=== PATIENT | male | born 1985 | race Caucasian/White ===

== ENCOUNTER → 2017-12-13 09:07 | Outpatient (CLI) | payer OTHER, SELFPAY ==
[2017-12-13 14:43] LABS: Basophils # 0.1 K/mm3 (0-0.2); Eosinophils # 0.3 K/mm3 (0.0-0.4); Eosinophils % 4.1 % (0.1-12.0); Hematocrit 50.6 % (42.0-52.0); Hemoglobin 15.8 g/dL (14.1-18.0); Lymphocytes # 2.5 K/mm3 (0.7-4.5); Lymphocytes % 30.4 K/mm3 (10-50); Mean Corpuscular HGB Conc 31.3 g/dL (31.8-35.4); Mean Corpuscular Hemoglobin 29.9 pg (27.0-31.2); Mean Corpuscular Volume 95.3 fl (80-94); Mean Platelet Volume 10.2 fl (7.4-10.4); Monocytes # 0.6 K/mm3 (0.1-1.0); Monocytes % 7.2 % (1.7-9.3); Neutrophils # 4.8 K/mm3 (1.8-7.8); Neutrophils % 57.2 % (37.0-80.0); Platelet Count 238 K/mm3 (142-424); Red Cell Distribution Width 12.5 % (11.5-17.5); White Blood Count 8.3 K/mm3 (4.8-10.8)
[2017-12-13 15:55] LABS: Alanine Aminotransferase 40 U/L (12-78); Albumin Level 4.2 gm/dL (3.4-5.0); Albumin/Globulin Ratio 1.2 (1.1-1.8); Alkaline Phosphatase 129 U/L (46-116); Anion Gap 15.9 mEq/L (5-15); Aspartate Amino Transferase 18 U/L (15-37); Bilirubin,Total 0.2 mg/dL (0.2-1.0); Blood Urea Nitrogen 15 mg/dL (7-18); Calcium 8.9 mg/dL (8.5-10.1); Carbon Dioxide 29 mmol/L (21.0-32.0); Chloride 102 mmol/L (98-107); Chol/HDL Ratio 3.7 (1-3.5); Cholesterol 192 mg/dL (140-200); Creatinine,Serum 1.04 mg/dL (0.70-1.30); Estimated Glomerular Filt Rate 83 ml/min (>60); Free T4 (Free Thyroxine) 1.13 ng/dl (0.76-1.46); GFR (African American) 101 ML/MIN (>60); Globulin 3.5 gm/dl (1.3-3.2); Glucose 137 mg/dL (74-106); HDL Cholesterol 52 mg/dL (27-67); LDL Cholesterol 124 mg/dL (0-130); Potassium 3.9 mmoL/L (3.5-5.1); Sodium 143 mmol/L (136-145); Thyroid Stimulating Hormone 3.46 uIU/ml (0.358-3.740); Total Protein,Serum 7.7 gm/dL (6.4-8.2); Triglycerides 80 mg/dL (30-200); VLDL Cholesterol 16 mg/dL (0-40)
[2017-12-13 16:56] LABS: Hemoglobin A1C 5.2 % (0.0-7.0)
[2017-12-13 19:37] LABS: Amphetamine/Metha Screen,Urine Negative ng/mL (<1000); Barbiturates Screen,Urine Negative ng/mL (<200); Benzodiazepines Screen,Urine Negative ng/mL (200); Cannabinoid Screen,Urine Positive ng/mL (<50); Cocaine Screen,Urine Negative ng/g (<300); Methadone Screen,Urine Negative ng/mL (<300); Opiate Screen,Urine Negative ng/mL (<300); Phencyclidine Screen,Urine Negative ng/mL (<25)
[2017-12-14 09:24] LABS: Hep A Ab, IgM Negative (Negative); Hepatitis B Core Antibody IgM Negative (Negative); Hepatitis B Surface Antigen Negative (Negative)
[2017-12-14 18:31] LABS: Hepatitis C Antibody >11.0 s/co ratio (0.0-0.9); Vitamin D 25 Hydroxy 33.7 ng/mL (30.0-100.0)
== END ==
PROVIDERS: Visit Provider Nurse Practitioner Family
DX: R53.83 Other fatigue (principal); Z79.899 Other long term (current) drug therapy
CPT/HCPCS: 80053; 80061; 80074; 80305; 82652; 83036; 84439; 84443; 85025

== ENCOUNTER → 2018-01-24 08:29 | Outpatient (CLI) | payer OTHER, SELFPAY ==
[2018-01-24 13:34] LABS: Amphetamine/Metha Screen,Urine Negative ng/mL (<1000); Barbiturates Screen,Urine Negative ng/mL (<200); Benzodiazepines Screen,Urine Negative ng/mL (200); Cannabinoid Screen,Urine Positive ng/mL (<50); Cocaine Screen,Urine Negative ng/g (<300); Methadone Screen,Urine Negative ng/mL (<300); Opiate Screen,Urine Negative ng/mL (<300); Phencyclidine Screen,Urine Negative ng/mL (<25)
== END ==
PROVIDERS: Visit Provider Nurse Practitioner Family
DX: Z79.899 Other long term (current) drug therapy (principal)
CPT/HCPCS: 80305

== ENCOUNTER → 2018-08-12 13:49 | Outpatient (CLI) | payer OTHER, SELFPAY ==
[2018-08-12 15:29] LABS: Amphetamine/Metha Screen,Urine Negative ng/mL (<1000); Barbiturates Screen,Urine Negative ng/mL (<200); Benzodiazepines Screen,Urine Negative ng/mL (<200); Cannabinoid Screen,Urine Positive ng/mL (<50); Cocaine Screen,Urine Negative ng/mL (<300); Methadone Screen,Urine Negative ng/mL (<300); Opiate Screen,Urine Negative ng/mL (<300); Phencyclidine Screen,Urine Negative ng/mL (<25)
== END ==
PROVIDERS: Visit Provider Nurse Practitioner Family
DX: Z79.899 Other long term (current) drug therapy (principal)
CPT/HCPCS: 80305

== ENCOUNTER → 2018-11-28 17:28 | Outpatient (CLI) | payer OTHER, SELFPAY ==
[2018-11-28 19:51] LABS: Amphetamine/Metha Screen,Urine Negative ng/mL (<1000); Barbiturates Screen,Urine Negative ng/mL (<200); Benzodiazepines Screen,Urine Positive ng/mL (<200); Cannabinoid Screen,Urine Positive ng/mL (<50); Cocaine Screen,Urine Negative ng/mL (<300); Methadone Screen,Urine Negative ng/mL (<300); Opiate Screen,Urine Negative ng/mL (<300); Phencyclidine Screen,Urine Negative ng/mL (<25)
[2018-12-04 08:27] LABS: Alprazolam Positive (.); Benzodiazepines Positive ng/mL (Cutoff=100); Clonazepam Positive (.); Flurazepam Negative (Cutoff=100); Lorazepam Negative (Cutoff=100); Midazolam Negative (Cutoff=100); Temazepam Negative (Cutoff=100); Triazolam Negative (Cutoff=100)
[2018-12-06 10:05] LABS: Clonazepam Confirm 283 ng/mL (Cutoff=100)
== END ==
PROVIDERS: Visit Provider Nurse Practitioner Family
DX: Z79.899 Other long term (current) drug therapy (principal)
CPT/HCPCS: 80305; 80346

== ENCOUNTER → 2019-03-17 10:23 | Outpatient (CLI) | payer OTHER, SELFPAY ==
--- NOTE | 2019-03-17 10:26 | CA_ITS ---
PROCEDURE: 2-D M-mode and color Doppler study INDICATIONS FOR THE TEST: Chest pain+ COPD Heart Murmur Tobacco Smoking+ Palpitations Fatigue Syncope Edema Hypertension+Diabetes Mellitus Rheumatic Fever SOB+DOMINGUEZ Obesity Hyperlipidemia Family History HD Additional History FORMER SUBSTANCE ABUSE PATIENT INFORMATION HEIGHT: 71 WEIGHT:245 GENDER: Male B/P:125/69 2-D/M-MODE INTERPRETATION: 2-D MEASUREMENTS OBSERVED VALUES IN CMS Right Ventricular Dimension (RVDd) 2.0 Interventricular Septum (Thickness)(IVsd) 1.1 Left Ventricular Internal Dimensions(LVIDd) 5.1 Left Ventricular Posterior Wall (Thickness)(LVPWd) 0.8 Aortic Root 2.7 Aortic Cusp Separation 1.9 Left Atrial Dimensions (LAD) 3.1 2D 1. Left atrium is normal size, left ventricle is normal size, there is no concentric left ventricular hypertrophy, visually estimated ejection fraction 55% with no regional wall motion abnormality. 2. The right atrium and right ventricle are normal size and contractility. 3. The aortic, mitral and tricuspid valve are grossly normal. 4. The pulmonic valve is poorly visualized. 5. No significant pericardial effusion noted. DOPPLER INTERROGATION: Doppler interrogation of the aortic, mitral and tricuspid valvular presence of mild mitral and tricuspid regurgitation, tricuspid regurgitation jet velocity is inadequate for calculation of the right ventricular systolic pressure, diastolic parameters are within normal range. Inferior vena cava is normal size with normal is likely collapse. CONCLUSION: 1. Normal left ventricular size, preserved left ventricular systolic function, visually estimated ejection fraction 55% with no regional wall motion abnormality, diastolic parameters are within normal range. 2. Mild mitral and tricuspid regurgitation. 3. No significant pericardial effusion noted, inferior vena cava is normal size with normal inspiratory collapse.
== END ==
PROVIDERS: PCP Emergency Medicine; Visit Provider Physician Assistant
DX: R07.9 Chest pain, unspecified (principal); R06.00 Dyspnea, unspecified; I10 Essential (primary) hypertension; F17.200 Nicotine dependence, unspecified, uncomplicated
CPT/HCPCS: 93306

== ENCOUNTER → 2020-06-20 09:39 | Outpatient (CLI) | payer MEDICAID, SELFPAY ==
--- NOTE | 2020-06-20 09:39 | CT_ITS ---
PROCEDURE: CT ABDOMEN PELVIS WO CON CLINICAL INDICATION: Umbilical pain possible hernia umbilical pain, ? umbilical hernia redicat no prior unble to get IV, oral contrast only COMPARISON: No exams were available for comparison TECHNIQUE: Axial images obtained with sagittal and coronal reformats. All CT scans at the facility use one or more dose reduction, viz: automated exposure control, ma/kV adjustment per patient size (including targeted exams where dose is matched to indication, i.e. head), or iterative reconstruction technique. FINDINGS: LOWER THORAX: No acute finding ABDOMEN & PELVIS: The liver, spleen, adrenal glands, pancreas, kidneys and gallbladder have an unremarkable appearance. No renal or ureteral calculi. There are few scattered small mesenteric and retroperitoneal lymph nodes which are nonspecific.. No evidence of appendicitis. There is mild thickening of the descending and sigmoid colon which may be due to nondistention or colitis. There is a small umbilical hernia which contains fat. No pelvic mass or abnormal fluid collection. No acute bony anomalies. IMPRESSION: 1. Possible colitis. 2. Small umbilical hernia containing fat. Dictated by: Ahsan Arellano MD 06/21/2020 14:30 Ahsan Arellano MD in [facility] 06/21/2020 14:30
== END ==
PROVIDERS: PCP Emergency Medicine; Visit Provider Surgery
DX: R10.33 Periumbilical pain (principal)
CPT/HCPCS: 74176

== ENCOUNTER 2020-11-26 23:25 | Emergency (ER) | payer MEDICAID, SELFPAY ==
[2020-11-26 23:28] VITALS: BP 128/87; PULSE 84; RESP 16; TEMP 36.8; O2SAT 98; BMI 36.9
--- NOTE | 2020-11-26 23:54 | XR_ITS ---
PROCEDURE: XR SHOULDER LT MIN 2V CLINICAL INDICATION: pain COMPARISON: No exams were available for comparison FINDINGS: No fracture or dislocation. There is questionable decreased attenuation involving the distal aspect of the clavicle suggesting some bony resorption. The joint spaces are well preserved. Other findings:None. IMPRESSION: No acute fracture. Questionable bony resorption involving the distal aspect of the clavicle which could be response to injury or inflammation. Follow-up may confirm stability. Dictated by: Ahsan Arellano MD 11/27/2020 07:01 Ahsan Arellano MD in [facility] 11/27/2020 07:01
--- NOTE | 2020-11-27 00:42 | HMH.EDGENADL ---
ED Disposition Clinical Impression: Shoulder pain Qualifiers: Chronicity: chronic Laterality: left Qualified Code(s): M25.512 - Pain in left shoulder; G89.29 - Other chronic pain Disposition: Home, Self-Care Condition on Discharge: Good Referrals: Kiko Wolfe MD [Primary Care Provider] - - Critical Care Critical Care Time: No Attestation: On 11/26/20, the high probability of a clinically significant, sudden or life threatening deterioration of the following system(s) required my full and direct attention, intervention and personal management. The time I documented below is in addition to time spent performing reported procedures but includes the following listed in this critical care notation. Medical Decision Making - Medical Records Medical records reviewed: Yes: I reviewed the patient's medical records. - Noé Inquiry Pt receiving controlled substance: No Vital Signs: 11/26/20 23:28 Temperature 98.3 F Temperature Source Oral Pulse Rate [Right Radial] 84 Respiratory Rate 16 Blood Pressure [Right Arm] 128/87 Blood Pressure Mean [Right Arm] 100 Blood Pressure Source [Right Arm] Automatic Cuff Blood Pressure Position [Right Arm] Supine 02 Sat by Pulse Oximetry 98 Oxygen Delivery Method Room Air Orders (Tests/Meds): ED MEDICATIONS Discontinued Medications Generic Name Dose Route Start Last Admin Trade Name Freq PRN Reason Stop Dose Admin Acetaminophen 1,000 mg 11/26/20 23:54 11/27/20 00:35 Acetaminophen 500mg Tab PO 11/26/20 23:55 1,000 mg ONCE ONE Administration Ibuprofen 400 mg 11/26/20 23:54 11/27/20 00:38 Ibuprofen 200mg/10ml Susp Udc PO 11/26/20 23:55 Not Given ONCE ONE Ibuprofen 400 mg 11/27/20 00:37 11/27/20 00:38 Ibuprofen 400 Mg Tablet PO 11/27/20 00:38 400 mg ONCE ONE Administration ORDERS Category Date Time Status XR shoulder LT min 2V Stat Exams 11/26/20 23:54 Taken Medical Decision Narrative: In summary patient presents for nontraumatic shoulder pain, patient says history of hypertension and smoking, patient on exam has no bruising, has concern for rotator cuff injury, patient's x-ray was obtained per patient request and was negative for fracture, patient was discharged home, patient follow-up with primary care doctor for further work-up patient was given acetaminophen ibuprofen for pain control, this was improved on reassessment. General Adult HPI - General Chief complaint: PAIN Stated complaint: AO 11/12/20 2200 injury left shoulder Time Seen by Provider: 11/26/20 23:59 Mode of Arrival: Ambulatory Limitations: No Limitations Description of Symptoms (Recalled from ER Triage Doc. by RN): Pt c/o left shoulder pain for a week after feeling a pop rolling over in bed. He states he just needs an xray - History of Present Illness HPI narrative: 5-year-old male presenting for shoulder pain. Patient has history of hypertension, smoking, patient rolled over in bed 2 weeks ago, had shoulder pain, sudden onset, nontraumatic, patient's pain is persisted and presents for work-up - Related Data Home Medications Medication Instructions Recorded Confirmed buprenorphine 8 mg-naloxone 2 mg 2 tab SUBLINGUAL QDAY 10/30/17 07/28/20 sublingual tablet buspirone 5 mg tablet 5 mg PO DAILY tab 07/28/20 07/28/20 hydroxyzine pamoate 25 mg capsule 25 mg PO HS 07/28/20 07/28/20 Previous Rx's Medication Instructions Recorded albuterol sulfate 90 mcg/actuation 2 puff INHALATION Q6H PRN #18 g 02/04/19 aerosol inhaler ipratropium 20 mcg-albuterol 100 See Rx Instructions .ROUTE 06/29/20 mcg/actuation mist for inhalation .COMPLEX #4 g lisinopril 20 mg tablet 20 mg PO DAILY #30 tab 07/28/20 omeprazole 20 mg capsule,delayed See Rx Instructions .ROUTE 11/16/20 release .COMPLEX #30 cap Allergies Allergy/AdvReac Type Severity Reaction Status Date / Time amoxicillin [AMOXICILLIN] Allergy Unknown Verified 07/28/20 14:14
[2020-11-27 01:12] VITALS: BP 125/78; PULSE 81; RESP 16; TEMP 36.6; O2SAT 99
[2020-11-27 01:21] VITALS: BP 128/78; PULSE 81; RESP 16; TEMP 36.6; O2SAT 99
== END 2020-11-27 01:22 | disposition home or self-care (01) ==
PROVIDERS: Emergency Provider Emergency Medicine; PCP Emergency Medicine
DX: M25.512 Pain in left shoulder (principal); I10 Essential (primary) hypertension; F41.9 Anxiety disorder, unspecified; J45.909 Unspecified asthma, uncomplicated; Z87.891 Personal history of nicotine dependence; Z88.1 Allergy status to other antibiotic agents
CPT/HCPCS: 73030; 99282

== ENCOUNTER 2021-01-07 11:49 | Emergency (ER) | payer MEDICAID, SELFPAY ==
[2021-01-07 12:04] VITALS: BMI 28.7
[2021-01-07 12:11] VITALS: BP 137/88; PULSE 78; RESP 16; TEMP 36.6; O2SAT 98; BMI 28.7
--- NOTE | 2021-01-07 12:21 | HMH.EDSKAF ---
ED Disposition Clinical Impression: Tick bite of abdominal wall Qualifiers: Encounter type: initial encounter Qualified Code(s): S30.861A - Insect bite (nonvenomous) of abdominal wall, initial encounter; W57.XXXA - Bitten or stung by nonvenomous insect and other nonvenomous arthropods, initial encounter Disposition: Home, Self-Care Condition on Discharge: Good Instructions: DI for Skin Abscess Referrals: Kiko Wolfe MD [Primary Care Provider] - - Critical Care Critical Care Time: No Attestation: On 01/07/21, the high probability of a clinically significant, sudden or life threatening deterioration of the following system(s) required my full and direct attention, intervention and personal management. The time I documented below is in addition to time spent performing reported procedures but includes the following listed in this critical care notation. Medical Decision Making - Medical Records Medical records reviewed: Yes: I reviewed the patient's medical records. - Noé Inquiry Pt receiving controlled substance: No Vital Signs: 01/07/21 12:11 Temperature 98 F Temperature Source Oral Pulse Rate [Radial] 78 Respiratory Rate 16 Blood Pressure [Right Arm] 137/88 Blood Pressure Mean [Right Arm] 104 Blood Pressure Position [Right Arm] Sitting 02 Sat by Pulse Oximetry 98 Oxygen Delivery Method Room Air Orders (Tests/Meds): ED MEDICATIONS Discontinued Medications Generic Name Dose Route Start Last Admin Trade Name Freq PRN Reason Stop Dose Admin Diphenhydramine HCl 50 mg 01/07/21 12:16 01/07/21 12:21 Diphenhydramine 50mg Capsule PO 01/07/21 12:17 50 mg ONCE ONE Administration Doxycycline Hyclate 200 mg 01/07/21 12:20 01/07/21 12:21 Doxycycline Hycl 100 Mg Tablet PO 01/07/21 12:21 200 mg ONCE ONE Administration Protocol Skin/Abscess/FB HPI - General Chief complaint: Skin/Abscess/Foreign Body Stated complaint: tick bite causing rash Time Seen by Provider: 01/07/21 12:10 Mode of Arrival: Ambulatory Limitations: No Limitations Description of Symptoms (Recalled from ER Triage Doc. by RN): TO ED PER [employer] CAR WITH C/O TICK BITE TO ABD YESTERDAY TODAY WOKE UP WITH RED RAISED WELTS TO ABD. DENIES FEVER, CHILLS, NAUSEA, VOMITING - History of Present Illness HPI narrative: This is a 35-year-old male that presents with rash to the abdomen which occurred approximately 4 to 5 hours ago. Patient also noted pulling a tick from his abdomen as well. Patient is unsure of how long the tick was attached but did not remember seeing it yesterday. No pain. No fever or chills. Patient also endorses recent use of insulation which he does report allergy to fiberglass. No other symptoms no other complaints. - Related Data Home Medications Medication Instructions Recorded Confirmed buprenorphine HCl 8 mg sublingual 8 mg SUBLINGUAL BID tab 12/27/20 12/27/20 tablet Previous Rx's Medication Instructions Recorded albuterol sulfate 90 mcg/actuation 2 puff INHALATION Q6H PRN #18 g 02/04/19 aerosol inhaler escitalopram oxalate 20 mg tablet 20 mg PO DAILY #90 tab 12/27/20 ipratropium 20 mcg-albuterol 100 See Rx Instructions .ROUTE 12/27/20 mcg/actuation mist for inhalation .COMPLEX #4 g lisinopril 20 mg tablet 20 mg PO DAILY #30 tab 12/27/20 omeprazole 20 mg capsule,delayed See Rx Instructions .ROUTE 12/27/20 release .COMPLEX #30 cap Allergies Allergy/AdvReac Type Severity Reaction Status Date / Time amoxicillin [AMOXICILLIN] Allergy Unknown Verified 07/28/20 14:14 [facility] History - Hepatitis A Screen Drug use history?: No High risk sexual behaviors?: No History of sexually transmitted infection?: No Currently employed?: No Childcare worker?: No Do you have indoor plumbing?: Yes Do you have electricity?: Yes Attestation statement:: This patient has been screened for Hepatitis A risk factors. I have reviewed the patient's past medical h
[2021-01-07 12:55] VITALS: BP 135/74; PULSE 78; RESP 16; TEMP 36.6; O2SAT 98
[2021-01-07 13:50] LABS: Bilirubin,Unconjugated 0.3 mg/dL (0.0-1.1)
[2021-01-07 13:51] LABS: Alanine Aminotransferase 26 U/L (12-78); Albumin Level 4.6 g/dl (3.5-5.0); Alkaline Phosphatase 126 U/L (38-126); Aspartate Amino Transferase 27 U/L (17-59); Bilirubin,Direct 0.1 mg/dl (0.0-0.4); Bilirubin,Indirect 0.3 mg/dL (0.0-0.9); Bilirubin,Total 0.4 mg/dl (0.2-1.3); Total Protein,Serum 7.2 g/dl (6.3-8.2)
[2021-01-08 14:08] LABS: Rapid Plasma Reagin Ab Titer Non Reactive (NonRea<1:1)
[2021-01-09 17:42] LABS: HIV Screen 4th Generation wRfx Non Reactive (Non Reactive); Hepatitis B Surf Ab Quant <3.1 mIU/mL (Immunity>9.9); Hepatitis C Antibody >11.0 s/co ratio (0.0-0.9)
== END 2021-01-07 12:56 | disposition home or self-care (01) ==
PROVIDERS: Emergency Provider Emergency Medicine; PCP Emergency Medicine
DX: S30.861A Insect bite (nonvenomous) of abdominal wall, initial encounter (principal); W57.XXXA Bitten or stung by nonvenomous insect and other nonvenomous arthropods, initial encounter; F41.9 Anxiety disorder, unspecified; I10 Essential (primary) hypertension; J45.909 Unspecified asthma, uncomplicated; Z87.891 Personal history of nicotine dependence
CPT/HCPCS: 36415; 80076; 86592; 86703; 86706; 87380; 99281; G0432

== ENCOUNTER → 2021-01-07 12:24 | Outpatient (CLI) | payer MEDICAID, SELFPAY | PROVIDERS: PCP Emergency Medicine; Visit Provider Neurological Surgery | DX: F11.20 Opioid dependence, uncomplicated (principal) ==

== ENCOUNTER 2025-02-26 09:27 | Outpatient (CLI) | payer MEDICAID, SELFPAY ==
[2025-02-26 18:29] LABS: Basophils % 0.5 % (0.1-2.0); Eosinophils # 0.1 Kmm3 (0.0-0.4); Hematocrit 45.3 % (42.0-52.0); Hemoglobin 14.1 g/dL (14.1-18.0); Immature Granulocytes # 0.05 10^3uL; Immature Granulocytes % 0.6 %; Lymphocytes # 1.4 K/mm3 (0.7-4.5); Lymphocytes % 17.9 % (10-50); Mean Corpuscular HGB Conc 31.1 g/dL (31.8-35.4); Mean Corpuscular Hemoglobin 29.2 pg (27.0-31.2); Mean Corpuscular Volume 93.8 fl (80-94); Mean Platelet Volume 11.9 fl (7.4-10.4); Monocytes # 0.6 K/mm3 (0.1-1.0); Monocytes % 7.1 % (1.7-9.3); Neutrophils # 5.7 K/mm3 (1.8-7.8); Neutrophils % 72.9 % (37.0-80.0); Nucleated Red Blood Cells # 0 10^3/uL; Nucleated Red Blood Cells % 0 %; Platelet Count 230 K/mm3 (142-424); Red Blood Count 4.83 M/mm3 (4.60-6.20); Red Cell Distribution Width 11.9 % (11.5-17.5); Red Cell Distribution Width-SD 41.1 fL; White Blood Count 7.9 K/mm3 (4.8-10.8)
[2025-02-26 19:55] LABS: Alanine Aminotransferase 28 U/L (12-78); Albumin Level 4.2 g/dl (3.5-5.0); Albumin/Globulin Ratio 1.4 (1.1-1.8); Alkaline Phosphatase 94 U/L (38-126); Anion Gap 10.7 mEq/L (5-15); Aspartate Amino Transferase 24 U/L (17-59); Bilirubin,Total 0.2 mg/dl (0.2-1.3); Blood Urea Nitrogen 14 mg/dl (9-20); Calcium 8.9 mg/dl (8.4-10.2); Carbon Dioxide 35 mmol/L (22.0-30.0); Chloride 99 mmol/L (98-107); Estimated Glomerular Filt Rate 108 ml/min (>60); GFR (African American) 130 ML/MIN (>60); Globulin 2.9 g/dL (1.3-3.2); Glucose 95 mg/dl (74-100); Potassium 4.7 mmoL/L (3.5-5.1); Sodium 140 mmol/L (136-145); Total Protein,Serum 7.1 g/dl (6.3-8.2)
[2025-02-26 20:31] LABS: HIV Combo NEGATIVE (Negative)
[2025-02-26 20:39] LABS: Hepatitis C Ab Qual. W/ RFX REACTIVE (Negative)
[2025-02-28 08:10] LABS: Hepatitis B Surface Antigen Negative (Negative)
[2025-03-02 15:17] LABS: Free Valproic Acid (Depakote) None Detected ug/mL (6.0-22.0)
== END 2025-02-26 23:59 | disposition home or self-care (01) ==
LOC: LAB.DROPOF 03-01 09:27
PROVIDERS: PCP Family Medicine; Visit Provider Family Medicine
DX: J45.20 Mild intermittent asthma, uncomplicated (principal); F41.9 Anxiety disorder, unspecified; F43.10 Post-traumatic stress disorder, unspecified
CPT/HCPCS: 80053; 80165; 85025; 86803; 87340; 87389; 87522

== ENCOUNTER 2025-03-02 13:36 | Outpatient (CLI) | payer MEDICAID, SELFPAY ==
[2025-03-02 17:51] LABS: Hep A Ab, IgM ND
[2025-03-02 18:20] LABS: INR 0.95 (0.9-1.1); Prothrombin Time 10.6 seconds (10.1-12.5)
[2025-03-04 06:18] LABS: Hep A Ab, Total Negative (Negative); Hep B Core Ab, Total Negative (Negative); Hep B Surface Ab, Qual Non Reactive (.); Hepatitis B Surface Antigen Negative (Negative)
== END 2025-03-02 23:59 | disposition home or self-care (01) ==
LOC: LAB.DROPOF 03-03 09:49
PROVIDERS: PCP Family Medicine; Visit Provider Family Medicine
DX: R76.8 Other specified abnormal immunological findings in serum (principal)
CPT/HCPCS: 85610; 86704; 86706; 86708; 87340; 87902